=== PATIENT | male | born 1985 | race Caucasian/White ===

== ENCOUNTER 2023-09-29 19:35 | Emergency (ER) | payer BC ==
[2023-09-29] MEDS ORDERED: ONDANSETRON 4 MG/2 ML VIAL ONE (20:15)
[2023-09-29] MEDS ORDERED: FAMOTIDINE 20 MG/2 ML VIAL IV ONE (20:16)
[2023-09-29] MEDS ORDERED: NA CHLORIDE 0.9% 1,000 ML ONE ×2 (20:16→21:14)
[2023-09-29 20:45] LABS: Absolute Basophils 0.1 K/uL (0-0.5); Absolute Eosinophils 0.1 K/uL (0-0.5); Absolute Lymphocytes (CBC) 2.3 K/uL (0.7-4.9); Absolute Monocytes 0.7 K/uL (0.1-1.3); Absolute Neutrophil 7.4 K/uL (1.8-8.0); Basophils % 0.6 % (0-1.3); Eosinophils % 1.4 % (0-4.4); Hematocrit 46.1 % (39.6-49.0); Lymphocytes % 21.9 % (15.3-44.8); MCH 29.2 pg (27.0-35.0); MCHC 34.7 g/dL (32.0-36.0); MCV 84.1 fL (80-100); MPV 7.3 fL (7.6-11.3); Monocytes % 6.5 % (3.3-12.3); Neutrophils % 69.6 % (41.7-73.7); Platelets 341 thou/uL (152-406); RBC Red Blood Cell Count 5.48 M/uL (4.33-5.43); Red Cell Distribution Width 13.4 % (12.1-15.2)
[2023-09-29 20:55] LABS: Albumin 4.2 g/dL (3.4-5.0); Albumin/Globulin Ratio 1.1 (1.1-1.8); Anion Gap 7.5 mEq/L (5.0-15.0); Potassium 3.5 mEq/L (3.5-5.1); Protein, Total 8.2 g/dL (6.4-8.2)
[2023-09-29 21:29] LABS: Specific Gravity 1.018 (1.005-1.030); Sqamous Epithelial <5 /HPF (None Seen); Urine Bacteria None Seen /HPF (<20); Urine Bilirubin NEGATIVE (Negative); Urine Blood Negative (Negative); Urine Clarity Clear (Clear); Urine Color Light-Yellow (Yellow); Urine Culture Reflex Order NOT NEEDED; Urine Glucose 4+ (Over) (Negative); Urine Ketones 1+ (Negative); Urine Microscopic Reflex YN ORDER UMIC; Urine Mucus Slight /HPF (None Seen); Urine Nitrite NEGATIVE (Negative); Urine Protein NEGATIVE (Negative); Urine RBC <5 /HPF (None Seen); Urine Urobilinogen Normal (Normal); Urine WBC <5 /HPF (<5); Urine pH 5.5 (5.0-7.0)
--- NOTE | 2023-09-29 21:37 | RAD REPORT ---
EXAM DESCRIPTION: CT - Abdomen Pelvis W Contrast - 09/29/2023 9:23 pm CLINICAL HISTORY: Abdominal pain COMPARISON: none. TECHNIQUE: Computed axial tomography of the abdomen pelvis was obtained. 100 cc Isovue-300 was admin istered intravenously. Oral contrast was not requested which limits evaluation of bowel and appendix All CT scans are performed using dose optimization technique as appropriate and may include automated exposure control or mA/KV adjustment according to patient size. FINDINGS: Fatty liver The spleen, pancreas, adrenal and kidneys appear unremarkable. There is no evidence of diverticulitis. A normal appendix Small umbilical hernia IMPRESSION: No acute abnormality is displayed.
[2023-09-29 21:51] LABS: SARS-CoV-2 Antigen CONTROL BLUE LINE VIS/BG OK; SARS-CoV-2 Antigen Rapid Res Negative (Negative)
[2023-09-29] MEDS ORDERED: INSULIN REGULAR (HUMAN) 100 UNIT/ML ONE (22:33)
--- NOTE | 2023-09-29 23:33 | ER ---
Nurse's Notes [facility] Name: Fito Graff Age: 38 yrs Sex: Male : 1985 Arrival Date: 09/29/2023 Time: 19:35 Bed 7 Private MD: Diagnosis: Nausea with vomiting, unspecified Presentation: 09/28 19:49 Chief complaint: Patient states: N/V X2 DAYS. DECREASED URINATION SINCE 6A. Coronavirus jj7 screen: At this time, the client does not indicate any symptoms associated with coronavirus-19. Ebola Screen: No symptoms or risks identified at this time. Initial Sepsis Screen: Does the patient meet any 2 criteria? HR > 90 bpm. Yes Does the patient have a suspected source of infection? No. Patient's initial sepsis screen is negative. Risk Assessment: Do you want to hurt yourself or someone else? Patient reports no desire to harm self or others. Onset of symptoms was September 27, 2023. 19:49 Method Of Arrival: Ambulatory [facility] 19:49 Acuity: KANE 3 jj7 Triage Assessment: 19:52 General: Appears in no apparent distress. comfortable, Behavior is calm, cooperative, jj7 appropriate for age. Pain: Denies pain. GI: Reports cramping, nausea, vomiting. Historical: - Allergies: 19:52 ACETAMINOPHEN; jj7 19:52 Benadryl; jj7 - PMHx: 19:52 diabetes mellitus; jj7 - PSHx: 19:52 None; jj7 - Immunization history:: Adult Immunizations up to date, Client reports receiving the 2nd dose of the Covid vaccine, Flu vaccine is not up to date. - Infectious Disease History:: Denies. - Social history:: Smoking status: Patient reports the use of cigarette tobacco products, smokes one-half pack cigarettes per day, Patient/guardian denies using alcohol, street drugs, IV drugs. Screenin:54 [facility] ED Fall Risk Assessment (Adult) History of falling in the last 3 months, jj7 including since admission No falls in past 3 months (0 pts) Confusion or Disorientation No (0 pts) Intoxicated or Sedated No (0 pts) Impaired Gait No (0 pts) Mobility Assist Device Used No (0 pt) Altered Elimination No (0 pt) Score/Fall Risk Level 0 - 2 = Low Risk Oriented to surroundings, Maintained a safe environment, Educated pt \T\ family on fall prevention, incl call for assistance when getting out of bed, Assessed \T\ reinforced patient's understanding of fall precautions. Abuse screen: Denies threats or abuse. Nutritional screening: No deficits noted. Tuberculosis screening: No symptoms or risk factors identified. Assessment: 20:15 General: Appears in no apparent distress. comfortable, Behavior is calm, cooperative, jw7 appropriate for age. Pain: Denies pain. Neuro: Level of Consciousness is awake, alert, obeys commands, Oriented to person, place, time, situation, Appropriate for age. Cardiovascular: Heart tones S1 S2 present Capillary refill < 3 seconds Clubbing of nail beds is absent JVD is absent Patient's skin is warm and dry. Respiratory: Airway is patent Trachea midline Respiratory effort is even, unlabored, Respiratory pattern is regular, symmetrical. GI: Abdomen is round non-distended, Bowel sounds present X 4 quads. Abd is soft and non tender X 4 quads. Reports cramping, nausea, vomiting. : No deficits noted. No signs and/or symptoms were reported regarding the genitourinary system. EENT: No deficits noted. No signs and/or symptoms were reported regarding the EENT system. Derm: Skin is intact, is healthy with good turgor, Skin is dry, Skin is normal, Skin temperature is warm. Musculoskeletal: Circulation, motion, and sensation intact. Range of motion: intact in all extremities. 21:00 Reassessment: Patient appears in no apparent distress at this time. No changes from jw7 previously documented assessment. Patient and/or family updated on plan of care and expected duration. Pain level reassessed. Patient is alert, oriented x 3, equal unlabored respirations, skin warm/dry/pink. 22:00 Reassessment: Patient appears in no apparent distress at this time. Patient and/or jw7 family updated on plan of care and expected duration. Pain level reassessed. Patient is alert, oriented x 3, equal unlabored respirations, skin warm/dry/pink. Patient states feeling better. Patient states symptoms have improved. 23:00 Reassessment: Patient appears in no apparent distress at this time. No changes from jw7 previously documented assessment. Patient and/or family updated on plan of care and expected duration. Pain level reassessed. Patient is alert, oriented x 3, equal unlabored respirations, skin warm/dry/pink. 23:47 Reassessment: Patient appears in no apparent distress at this time. No changes from jw7 previously documented assessment. Patient and/or family updated on plan of care and expected duration. Pain level reassessed. Patient is alert, oriented x 3, equal unlabored respirations, skin warm/dry/pink. Vital Signs: 19:49 BP 115 / 78; Pulse 113; Resp 18; Temp 97.3; Pulse Ox 98% ; Weight 101.15 kg; Height 6 j7 ft. 2 in. ; 20:33 BP 129 / 86; Pulse 97; Resp 17 S; Pulse Ox 94% on R/A; jw7 21:30 BP 116 / 76; Pulse 97; Resp 16 S; Pulse Ox 95% on R/A; jw7 22:30 BP 112 / 78; Pulse 98; Resp 17 S; Pulse Ox 96% on R/A; jw7 23:30 BP 115 / 75; Pulse 95; Resp 17 S; Pulse Ox 97% on R/A; jw7 19:49 Body Mass Index 28.63 (101.15 kg, 187.96 cm) j7 ED Course: 19:37 Patient arrived in ED. jj6 19:47 Sh[facility] Evans [facility]C [facility] sb4 19:47 Sera Hernández MD is Attending Physician. sb4 19:52 Triage completed. jj7 19:52 Arm band placed on right wrist. jj7 20:20 Inserted saline lock: 20 gauge in right antecubital area, using aseptic technique. jw7 Blood collected. Flushed with 10 mL NS. 20:20 Initial lab(s) drawn, by me, sent to lab. jw7 20:31 CBC with Diff Sent. jw7 20:31 CMP Sent. jw7 20:31 Lipase Sent. jw7 20:33 Provided Education on: use of call light. jw7 20:33 Patient has correct armband on for positive identification. Bed in low position. Call jw7 light in reach. 21:25 CT Abd/Pelvis - IV Contrast Only In Process Unspecified. EDMS 21:31 SARS RAPID Sent. jw7 23:47 No provider procedures requiring assistance completed. IV discontinued, intact, jw7 bleeding controlled, No redness/swelling at site. Pressure dressing applied. Administered Medications: 20:31 Drug: NS 0.9% IV 1000 ml IV at 1 bolus Per protocol; 1000 mL bolus Route: IV; Rate: 1 jw7 bolus; Site: right antecubital; 22:45 Follow up: Response: No adverse reaction; IV Status: Completed infusion; IV Intake: jw7 1000ml 20:31 Drug: Famotidine IVP 20 mg IVP once; dilute with 10 mL 0.9% NaCl; give over 2 minutes jw7 Route: IVP; Site: right antecubital; 22:45 Follow up: Response: No adverse reaction; Marked relief of symptoms; Nausea is decreasedjw7 20:31 Drug: Ondansetron IVP 4 mg IVP once; over 2 minutes Route: IVP; Site: right antecubital;jw7 22:45 Follow up: Response: No adverse reaction; Marked relief of symptoms; Nausea is decreasedjw7 21:31 Drug: NS 0.9% IV 1000 ml IV at 1 bolus Per protocol; 1000 mL bolus Route: IV; Rate: 1 jw7 bolus; Site: right antecubital; 22:45 Follow up: Response: No adverse reaction; IV Status: Completed infusion; IV Intake: jw7 1000ml 22:35 Drug: Insulin Regular Human IVP 5 units IVP once {Co-Signature: rg5 (Raghavendra Kinsey RN).} Route: IVP; Site: right antecubital; 23:46 Follow up: Response: No adverse reaction jw7 Medication: 19:54 VIS not applicable for this client. jj7 Intake: 22:45 IV: 1000ml; Total: 1000ml. jw7 22:45 IV: 1000ml; Total: 2000ml. jw7 Outcome: 23:32 Discharge ordered by . stacy 23:47 Discharged to home ambulatory, jw7 23:47 Condition: stable 23:47 Discharge instructions given to patient, Instructed on discharge instructions, follow up and referral plans. medication usage, Demonstrated understanding of instructions, follow-up care, medications, Prescriptions given X 1, 23:47 Patient left the ED. jw7 Signatures: Dispatcher [employer] EDMS Karina Rai jj6 Grace Nye RN RN jw7 Pinky Carter RN RN jj7 Sharda Evans PA-C PAJuan J Vizcainomel RN rg5
--- NOTE | 2023-09-29 23:33 | EDPHYS ---
Physician Documentation [facility] Name: Fito Graff Age: 38 yrs Sex: Male : 1985 Arrival Date: 09/29/2023 Time: 19:35 Bed 7 Private MD: ED Physician Sera Hernández HPI: 09/28 20:06 This 38 yrs old Male presents to ER via Ambulatory with complaints of Nausea/Vomiting. sb4 20:06 The patient presents to the emergency department with nausea, vomiting. Onset: The sb4 symptoms/episode began/occurred 2 day(s) ago. Possible causes: unknown. The symptoms are aggravated by food , The symptoms are alleviated by nothing. Associated signs and symptoms: The patient has no apparent associated signs or symptoms. The patient has not experienced similar symptoms in the past. The patient has not recently seen a physician. Historical: - Allergies: 19:52 ACETAMINOPHEN; jj7 19:52 Benadryl; jj7 - PMHx: 19:52 diabetes mellitus; jj7 - PSHx: 19:52 None; jj7 - Immunization history:: Adult Immunizations up to date, Client reports receiving the 2nd dose of the Covid vaccine, Flu vaccine is not up to date. - Infectious Disease History:: Denies. - Social history:: Smoking status: Patient reports the use of cigarette tobacco products, smokes one-half pack cigarettes per day, Patient/guardian denies using alcohol, street drugs, IV drugs. ROS: 20:06 Constitutional: Negative for fever, chills, and weight loss, sb4 20:06 Abdomen/GI: Positive for nausea and vomiting, 20:06 All other systems are negative, Exam: 20:06 Constitutional: This is a well developed, well nourished patient who is awake, alert, sb4 and in no acute distress. Head/Face: Normocephalic, atraumatic. Eyes: Extra-ocular motions intact. Periorbital areas with no swelling, redness, or edema. ENT: Dry membranes moist. Respiratory: Lungs have equal breath sounds bilaterally, clear to auscultation and percussion. No rales, rhonchi or wheezes noted. No increased work of breathing, no retractions or nasal flaring. Abdomen/GI: Soft, non-tender, no distension. Skin: Warm, dry with normal turgor. Normal color with no rashes, no lesions, and no evidence of cellulitis. 20:06 Cardiovascular: Rate: tachycardic, Rhythm: regular, Vital Signs: 19:49 BP 115 / 78; Pulse 113; Resp 18; Temp 97.3; Pulse Ox 98% ; Weight 101.15 kg; Height 6 jj7 ft. 2 in. ; 20:33 BP 129 / 86; Pulse 97; Resp 17 S; Pulse Ox 94% on R/A; jw7 21:30 BP 116 / 76; Pulse 97; Resp 16 S; Pulse Ox 95% on R/A; jw7 22:30 BP 112 / 78; Pulse 98; Resp 17 S; Pulse Ox 96% on R/A; jw7 23:30 BP 115 / 75; Pulse 95; Resp 17 S; Pulse Ox 97% on R/A; jw7 19:49 Body Mass Index 28.63 (101.15 kg, 187.96 cm) [facility] MDM: 20:01 Patient medically screened. sb4 23:33 Data reviewed: vital signs, nurses notes, lab test result(s), radiologic studies, and sb4 as a result, I will discharge patient. Historians other than the Patient: Spouse/Significant Other: . Care significantly affected by the following chronic conditions: Diabetes. Counseling: I had a detailed discussion with the patient and/or guardian regarding the historical points, exam findings, and any diagnostic results supporting the discharge/admit diagnosis, lab results, radiology results, to return to the emergency department if symptoms worsen or persist or if there are any questions or concerns that arise at home. 09/28 20:05 Order name: CBC with Diff; Complete Time: 20:58 sb4 09/28 20:05 Order name: CMP; Complete Time: 20:58 sb4 09/28 20:05 Order name: Lipase; Complete Time: 20:58 sb4 09/28 20:05 Order name: Urinalysis w/ reflexes; Complete Time: 21:31 sb4 09/28 20:58 Order name: SARS RAPID; Complete Time: 21:52 sb4 09/28 22:39 Order name: Glucose, Ancillary Testing; Complete Time: 22:39 EDMS 09/28 20:05 Order name: CT Abd/Pelvis - IV Contrast Only; Complete Time: 21:37 sb4 09/28 20:05 Order name: IV Saline Lock; Complete Time: 20:31 sb4 09/28 20:05 Order name: Labs collected and sent; Complete Time: 20: sb4 09/28 21:38 Order name: PO challenge; Complete Time: 22:35 sb4 09/28 22:09 Order name: Accucheck; Complete Time: 22:33 sb4 Administered Medications: 20:31 Drug: NS 0.9% IV 1000 ml IV at 1 bolus Per protocol; 1000 mL bolus Route: IV; Rate: 1 jw7 bolus; Site: right antecubital; 22:45 Follow up: Response: No adverse reaction; IV Status: Completed infusion; IV Intake: jw7 1000ml 20:31 Drug: Famotidine IVP 20 mg IVP once; dilute with 10 mL 0.9% NaCl; give over 2 minutes jw7 Route: IVP; Site: right antecubital; 22:45 Follow up: Response: No adverse reaction; Marked relief of symptoms; Nausea is decreasedjw7 20:31 Drug: Ondansetron IVP 4 mg IVP once; over 2 minutes Route: IVP; Site: right antecubital;jw7 22:45 Follow up: Response: No adverse reaction; Marked relief of symptoms; Nausea is decreasedjw7 21:31 Drug: NS 0.9% IV 1000 ml IV at 1 bolus Per protocol; 1000 mL bolus Route: IV; Rate: 1 jw7 bolus; Site: right antecubital; 22:45 Follow up: Response: No adverse reaction; IV Status: Completed infusion; IV Intake: jw7 1000ml 22:35 Drug: Insulin Regular Human IVP 5 units IVP once {Co-Signature: rg5 (Raghavendra Kinsey7 RN).} Route: IVP; Site: right antecubital; 23:46 Follow up: Response: No adverse reaction jw7 Disposition Summary: 09/29/23 23:32 Discharge Ordered Notes: Location: Home sb4 Problem: new sb4 Symptoms: have improved sb4 Condition: Stable sb4 Diagnosis - Nausea with vomiting, unspecified sb4 Followup: sb4 - With: Emergency Department - When: As needed - Reason: Trouble breathing, Worsening of condition Discharge Instructions: - Discharge Summary Sheet sb4 - Nausea and Vomiting, Adult sb4 Forms: - Work release form sb4 - Patient Portal Instructions sb4 - Leadership Thank You Letter sb4 Prescriptions: - ondansetron 8 mg Oral Tablet,disintegrating - take 1 tablet ORAL route every 6 hours; 10 tablet; Refills: 0, Product sb4 Selection Permitted Signatures: Dispatcher [employer] EDGrace Jackman RN RN jw7 Pinky Carter RN RN jj7 Sharda Evans, PAMyra PAJairoC sb4 Raghavendra Kinsey RN rg5 Corrections: (The following items were deleted from the chart) 20:06 20:06 CBC+H.LAB.BRZ ordered. EDMS EDMS 20:06 20:06 COMPREHENSIVE METABOLIC PANEL+C.LAB.BRZ ordered. EDMS EDMS 20:06 20:06 LIPASE+C.LAB.BRZ ordered. EDMS EDMS 20:06 20:06 Urinalysis+U.LAB.BRZ ordered. EDMS EDMS 20:59 20:59 SARS-COV-2 Antigen Rapid+I.LAB.BRZ ordered. EDMS EDMS
[2023-09-30 23:59] VITALS: TEMP 97.3
[2023-10-01 00:15] VITALS: BP 115/75; O2SAT 97
== END 2023-09-29 23:47 | disposition home or self-care (01) ==
LOC: ER 19:35
DX: R11.2 Nausea with vomiting, unspecified (principal); Z11.52 Encounter for screening for COVID-19
CPT/HCPCS: 96361; 85025; 81001; 36415; 82947; 83690; 80053; 74177; 96375; 96374; 99284; 87811; Q9967; J2405; J7030 ×2

== ENCOUNTER 2023-10-30 23:57 | Emergency (ER) | payer BC ==
--- NOTE | 2023-10-31 00:18 | EDPHYS ---
Physician Documentation [facility] Name: Fito Graff Age: 38 yrs Sex: Male : 1985 Arrival Date: 10/30/2023 Time: 23:57 Bed 14 Private MD: ED Physician Stefano Adam HPI: 10/30 00:00 This 38 yrs old Male presents to ER via Unassigned with complaints of sp4 SWELLING IN JAW. 01:19 38-year-old male with a history of diabetes presents with left-sided facial swelling as sp4 reported by the patient. Historical: - Allergies: 00:09 ACETAMINOPHEN; ss 00:09 Benadryl; ss - Home Meds: 00:09 metformin [Active]; ss - PMHx: 00:09 diabetes mellitus; chronic sinusitis; ss - PSHx: 00:09 None; ss - Immunization history:: Client reports receiving the 2nd dose of the Covid vaccine. - Infectious Disease History:: Denies. - Social history:: Smoking status: Patient reports the use of cigarette tobacco products, smokes one-half pack cigarettes per day. - Family history:: not pertinent. ROS: 01:19 Constitutional: Negative for fever, chills, and weight loss, positive for left-sided sp4 facial swelling without pain 01:19 All other systems are negative, Exam: 01:19 Constitutional: This is a well developed, well nourished patient who is awake, alert, sp4 and in no acute distress. Head/Face: Normocephalic, atraumatic. Eyes: Pupils equal round and reactive to light, extra-ocular motions intact. Lids and lashes normal. Conjunctiva and sclera are not injected. Cornea within normal limits. Periorbital areas with no swelling, redness, or edema. ENT: Nares patent. No nasal discharge, no septal abnormalities noted. Tympanic membranes are normal and external auditory canals are clear. Oropharynx with no redness, swelling, or masses, exudates, or evidence of obstruction, uvula midline. Mucous membranes moist. Positive extensive plaque accumulation left upper dental structures including left upper premolars and left upper left molar teeth causing conglomerate of plaque which is quite extensive appearing , extending towards the buccal surface / there is a moderate amount of chronic periodontal disease associated with dental caries , poor dental hygiene and also significant dental decay of several molars. No sign of drainable gingival abscess. Neck: Trachea midline, no thyromegaly or masses palpated, and no cervical lymphadenopathy. Supple, full range of motion without nuchal rigidity, or vertebral point tenderness. Chest/axilla: Normal chest wall appearance and motion. Nontender with no deformity. No lesions are appreciated. Cardiovascular: Regular rate and rhythm with a normal S1 and S2. No gallops, murmurs, or rubs. Normal PMI, no JVD. No pulse deficits. Respiratory: Lungs have equal breath sounds bilaterally, clear to auscultation and percussion. No rales, rhonchi or wheezes noted. No increased work of breathing, no retractions or nasal flaring. Abdomen/GI: Soft, with normal bowel sounds. No distension or tympany. No guarding or rebound. No evidence of tenderness throughout. Back: No spinal tenderness. No costovertebral tenderness. Skin: Warm, dry with normal turgor. Normal color with no rashes, no lesions, and no evidence of cellulitis. MS/ Extremity: Pulses equal, no cyanosis. Neurovascular intact. Full, normal range of motion. Neuro: Awake and alert, GCS 15, oriented to person, place, time, and situation. Cranial nerves II-XII grossly intact. Motor strength 5/5 in all extremities. Sensory grossly intact. Psych: Awake, alert, with orientation to person, place and time. Behavior, mood, and affect are within normal limits Vital Signs: 00:00 BP 143 / 89; Pulse 90; Resp 18; Pulse Ox 98% on R/A; Pain 0/10; rg5 00:07 BP 143 / 90; Pulse 90; Resp 16; Pulse Ox 100% on R/A; Weight 98.88 kg; Height 6 ft. 2 ss in. ; Pain 0/10; 00:07 Body Mass Index 27.99 (98.88 kg, 187.96 cm) ss 00:00 Pain Scale: Adult rg5 00:07 Pain Scale: Adult ss MDM: 00:11 Patient medically screened. sp4 01:19 Differential diagnosis: dental caries, gingivitis, dental abscess, pericoronitis, sp4 aphthous ulcers, gingivostomatitis. Data reviewed: vital signs, nurses notes, old medical records, lab test result(s). Consideration of Admission/Observation Escalation of care including admission/observation considered. ED course: Patient was advised close follow-up with a dentist also advised extensive diligent oral hygiene.. 10/30 00:26 Order name: Glucose, Ancillary Testing; Complete Time: 01:30 EDMS 10/30 00:10 Order name: Accucheck Blood Glucose; Complete Time: 00:18 sp4 Administered Medications: 00:10 Drug: Rocephin (cefTRIAXone) IM 1 grams IM once Route: IM; Site: right gluteus; rg5 00:39 Follow up: Response: No adverse reaction rg5 Disposition Summary: 10/31/23 00:18 Discharge Ordered Notes: Location: Home sp4 Problem: new sp4 Symptoms: have improved sp4 Condition: Stable sp4 Diagnosis - Acute Facial swelling, acute dental associated infection, Chronic dental plaque sp4 , Chronic periodontal disease Followup: sp4 - With: Private Physician - When: 7 - 10 days - Reason: Recheck today's complaints Discharge Instructions: - Discharge Summary Sheet sp4 - Periodontal Disease sp4 Forms: - Patient Portal Instructions sp4 - Work release form [facility] Prescriptions: - Cephalexin 500 mg Oral Capsule - take 1 capsule ORAL route every 8 hours for 10 days; 30 capsule; Refills: 0, sp4 Product Selection Permitted Signatures: Oneida Siddiqui RN RN ss Stefano Adam MD MD sp4 Raghavendra Kinsey RN RN rg5
--- NOTE | 2023-10-31 00:18 | ER ---
Nurse's Notes [facility] Name: Fito Graff Age: 38 yrs Sex: Male : 1985 Arrival Date: 10/30/2023 Time: 23:57 Bed 14 Private MD: Diagnosis: Acute Facial swelling, acute dental associated infection, Chronic dental plaque , Chronic periodontal disease Presentation: 10/30 00:07 Chief complaint: Patient states: Swelling to L side of face that patient noticed an ss hour ago. HX of chronic sinusitis. Completed Z-niecy recently. Denies fever. Coronavirus screen: Client denies travel out of the [place] in the last 14 days. Ebola Screen: Patient denies exposure to infectious person. Patient denies travel to an Ebola-affected area in the 21 days before illness onset. Initial Sepsis Screen: Does the patient meet any 2 criteria? No. Patient's initial sepsis screen is negative. Does the patient have a suspected source of infection? No. Patient's initial sepsis screen is negative. Risk Assessment: Do you want to hurt yourself or someone else? Patient reports no desire to harm self or others. Onset of symptoms was October 30, 2023. 00:07 Method Of Arrival: Ambulatory ss 00:07 Acuity: KANE 3 ss Triage Assessment: 00:09 General: Appears in no apparent distress. comfortable, Behavior is calm, cooperative. ss Pain: Denies pain. Neuro: Level of Consciousness is awake, alert, obeys commands. Respiratory: Airway is patent Respiratory effort is even, unlabored, Respiratory pattern is regular, symmetrical. Derm: Skin is intact, is healthy with good turgor. Historical: - Allergies: 00:09 ACETAMINOPHEN; ss 00:09 Benadryl; ss - Home Meds: 00:09 metformin [Active]; ss - PMHx: 00:09 diabetes mellitus; chronic sinusitis; ss - PSHx: 00:09 None; ss - Immunization history:: Client reports receiving the 2nd dose of the Covid vaccine. - Infectious Disease History:: Denies. - Social history:: Smoking status: Patient reports the use of cigarette tobacco products, smokes one-half pack cigarettes per day. - Family history:: not pertinent. Screenin:00 [facility] ED Fall Risk Assessment (Adult) History of falling in the last 3 months, rg5 including since admission No falls in past 3 months (0 pts) Confusion or Disorientation No (0 pts) Intoxicated or Sedated No (0 pts) Impaired Gait No (0 pts) Mobility Assist Device Used No (0 pt) Altered Elimination No (0 pt) Score/Fall Risk Level 0 - 2 = Low Risk Oriented to surroundings, Maintained a safe environment, Hourly rounding (assess needs \T\ fall precautionary measures) done. 00:00 Abuse screen: Denies threats or abuse. Nutritional screening: No deficits noted. rg5 Tuberculosis screening: No symptoms or risk factors identified. Vital Signs: 00:00 BP 143 / 89; Pulse 90; Resp 18; Pulse Ox 98% on R/A; Pain 0/10; rg5 00:07 BP 143 / 90; Pulse 90; Resp 16; Pulse Ox 100% on R/A; Weight 98.88 kg; Height 6 ft. 2 ss in. ; Pain 0/10; 00:07 Body Mass Index 27.99 (98.88 kg, 187.96 cm) ss 00:00 Pain Scale: Adult rg5 00:07 Pain Scale: Adult ss ED Course: 10/29 23:59 Patient arrived in ED. [id number] 09 00:00 Stefano Adam MD is Attending Physician. sp4 00:00 Patient has correct armband on for positive identification. Call light in reach. rg5 Provided Education on: post er care. 00:00 No provider procedures requiring assistance completed. Patient did not have IV access rg5 during this emergency room visit. 00:09 Triage completed. ss 00:09 Arm band placed on right wrist. ss 00:17 Raghavendra Kinsey, NAEEM is Primary Nurse. rg5 Administered Medications: 00:10 Drug: Rocephin (cefTRIAXone) IM 1 grams IM once Route: IM; Site: right gluteus; rg5 00:39 Follow up: Response: No adverse reaction rg5 Medication: 00:38 VIS not applicable for this client. rg5 Outcome: 00:18 Discharge ordered by . sp4 00:20 Discharged to home ambulatory, rg5 00:20 Condition: stable rg5 00:20 Discharge instructions given to patient, Instructed on discharge instructions, follow up and referral plans. Demonstrated understanding of instructions, follow-up care, medications, Prescriptions given X 1, 00:40 Patient left the ED. rg5 Signatures: Siddiqui, Oneida, RN RN ss Karina Rai jj6 Stefano Adam MD MD sp4 Raghavendra Kinsey RN RN rg5 Corrections: (The following items were deleted from the chart) 00:37 09/05 23:55 BP 143 / 89; Pulse 90bpm; Resp 18bpm; Pulse Ox 98% RA; Pain 0/10, Adult; [id number]
[2023-10-31] MEDS ORDERED: LIDOCAINE 1% MPF 2 ML AMPULE ONE (00:25)
[2023-10-31] MEDS ORDERED: CEFTRIAXONE 1000 MG/VIAL ONE (00:25)
[2023-10-31 00:46] VITALS: BP 143/90; O2SAT 100
== END 2023-10-31 00:40 | disposition home or self-care (01) ==
LOC: ER 23:57
DX: K04.7 Periapical abscess without sinus (principal); K05.10 Chronic gingivitis, plaque induced; K05.6 Periodontal disease, unspecified; F17.210 Nicotine dependence, cigarettes, uncomplicated
CPT/HCPCS: 82947; 96372; 99284; J0696

== ENCOUNTER 2024-03-29 17:27 | Emergency (ER) | payer BC ==
--- NOTE | 2024-03-29 18:09 | RAD REPORT ---
EXAM: Chest Single View HISTORY: CHEST PAIN COMPARISON: None. FINDINGS: LUNGS/PLEURA: The lungs are clear. No pleural effusions or pneumothorax. No pulmonary edema. MEDIASTINUM: The mediastinal silhouette is within normal limits. CARDIAC: The cardiac silhouette is within normal limits. UPPER ABDOMEN: No significant abnormality. BONES: No acute abnormality. LINES/TUBES/OTHER: N/A IMPRESSION: No evidence of acute cardiopulmonary disease.
--- NOTE | 2024-03-29 19:57 | EDPHYS ---
Physician Documentation [facility] Name: Fito Graff Age: 38 yrs Sex: Male : 1985 Arrival Date: 03/29/2024 Time: 17:27 Bed DIS15 Private MD: ED Physician Roque Landeros HPI: 03/29 17:45 This 38 yrs old Male presents to ER via Ambulatory with complaints of Chest Tightness, cp Dizziness, High heart rate. 17:45 The patient presents with a history of heart racing. Context: The symptoms occur at cp rest. Onset: The symptoms/episode began/occurred this morning, after waking up. Duration: The patient or guardian reports multiple episodes, that wax and wane. 17:45 Associated signs and symptoms: Pertinent positives: chest pain that started [employer], cp Pertinent negatives: cough, fever, SOB, syncope, near-syncope. Severity of symptoms: in the emergency department the symptoms are worse. Historical: - Allergies: 17:47 ACETAMINOPHEN; hb 17:47 Benadryl; hb - PMHx: 17:47 Chronic Sinusitis; diabetes mellitus; hb - Immunization history:: Adult Immunizations up to date. - Infectious Disease History:: Denies. - Social history:: Smoking status: Reported history of juuling and/or vaping. ROS: 17:50 Constitutional: Negative for body aches, chills, fever, poor PO intake, cp 17:50 Cardiovascular: Positive for chest pain, palpitations, cp 17:50 Eyes: Negative for injury, pain, redness, and discharge, cp 17:50 ENT: Negative for drainage from ear(s), ear pain, sore throat, difficulty swallowing, difficulty handling secretions, 17:50 Respiratory: Negative for cough, shortness of breath, wheezing, 17:50 Abdomen/GI: Negative for abdominal pain, nausea, vomiting, and diarrhea, 17:50 Neuro: Negative for altered mental status, dizziness, headache, numbness, weakness, cp 17:50 All other systems are negative, Exam: 17:55 Constitutional: The patient appears in no acute distress, alert, awake, cp non-diaphoretic, non-toxic, well developed, well nourished, 17:55 Head/Face: Normocephalic, atraumatic. cp 17:55 Eyes: Periorbital structures: appear normal, Conjunctiva: normal, no exudate, no injection, Sclera: no appreciated abnormality, Lids and lashes: appear normal, bilaterally, 17:55 ENT: External ear(s): are unremarkable, Nose: is normal, Mouth: Lips: moist, Oral mucosa: moist, Posterior pharynx: Airway: no evidence of obstruction, patent, 17:55 Chest/axilla: Inspection: normal, 17:55 Cardiovascular: Rate: tachycardic, Rhythm: regular, Edema: is not appreciated, JVD: is not appreciated, 17:55 Respiratory: the patient does not display signs of respiratory distress, Respirations: normal, no use of accessory muscles, no retractions, labored breathing, is not present, Breath sounds: are clear throughout, no decreased breath sounds, no stridor, no wheezing, 17:55 Abdomen/GI: Inspection: abdomen appears normal, Palpation: abdomen is soft and non-tender, in all quadrants, 17:55 Back: pain, is absent, ROM is normal, 17:55 Neuro: Orientation: to person, place \T\ time. Mentation: is normal, Motor: moves all fours, strength is normal, Sensation: is normal, Gait: is steady, at a normal pace, without difficulty, 17:57 ECG was reviewed by the Attending Physician. Vital Signs: 17:45 BP 121 / 89; Pulse 112; Resp 14; Temp 98.9(O); Weight 96.62 kg; Height 6 ft. 2 in. ; hb Pain 4/10; 17:45 Body Mass Index 27.35 (96.62 kg, 187.96 cm) hb 17:45 Pain Scale: Adult hb MDM: 17:44 Medical Screening Exam initiated cp 18:00 Differential diagnosis: arrythmia, stress disorder, anxiety, acute coronary syndrome. 19:55 Data reviewed: vital signs, nurses notes, EKG. 19:56 ED course: VSS. EKG reviewed and negative for acute ST elevation. Patient declined to have blood drawn and continue evaluation. Will discharge to home for continued monitoring. 03/29 17:44 Order name: XRAY Chest (1 view); Complete Time: 19:08 03/29 17:44 Order name: Cardiac monitoring 03/29 17:44 Order name: EKG - Nurse/Tech 03/29 17:44 Order name: IV Saline Lock 03/29 17:44 Order name: Labs collected and sent 03/29 17:44 Order name: O2 Per Protocol cp 03/29 17:44 Order name: O2 Sat Monitoring cp EC:57 Rate is 109 beats/min. Rhythm is regular. KS interval is normal. QRS interval is cp normal. QT interval is normal. T waves are Inverted in lead aVR. Interpreted by me. Reviewed by me. Administered Medications: No medications were administered Disposition Summary: 03/29/24 19:56 Discharge Ordered Notes: Location: Home cp Problem: new cp Symptoms: are unchanged cp Condition: Stable cp Diagnosis - Chest pain, unspecified cp - Palpitations cp Followup: cp - With: Pascual John MD - When: 2 - 3 days - Reason: Recheck today's complaints Discharge Instructions: - Discharge Summary Sheet cp - Nonspecific Chest Pain, Adult cp - Palpitations cp - Aspirin and Your Heart cp Forms: - Medication Reconciliation Form cp - Antibiotic Education cp - Prescription Opioid Use cp - Patient Portal Instructions cp - Leadership Thank You Letter cp Addendum: 03/31/2024 17:31 I was immediately available for consultation during this patient's visit. I did not e c2 personally see the patient or discuss the patient with the MITCH. . Signatures: Dispatcher [employer] EDMS Dominick Darby PA PA cp Baxter, Heather, RN RN hb Corral, Edwin, MD MD ec2 Corrections: (The following items were deleted from the chart) 03/29 17:45 17:45 BASIC METABOLIC PANEL+C.LAB.BRZ ordered. EDMS EDMS 17:45 17:45 CBC+H.LAB.BRZ ordered. EDMS EDMS 17:45 17:45 HEPATIC FUNCTION+C.LAB.BRZ ordered. EDMS EDMS 17:45 17:45 MAGNESIUM+C.LAB.BRZ ordered. EDMS EDMS 17:45 17:45 PROBNP+C.LAB.BRZ ordered. EDMS EDMS 17:45 17:45 PROTIME (+INR)+COAG.LAB.BRZ ordered. EDMS EDMS 17:45 17:45 Troponin High Sensitivity+C.LAB.BRZ ordered. EDMS EDMS 17:45 17:45 Chest Single View+RAD.RAD.BRZ ordered. EDMS EDMS
--- NOTE | 2024-03-29 19:57 | ER ---
Nurse's Notes [facility] Name: Fito Graff Age: 38 yrs Sex: Male : 1985 Arrival Date: 03/29/2024 Time: 17:27 Bed DIS15 Private MD: Diagnosis: Chest pain, unspecified;Palpitations Presentation: 03/29 17:45 Chief complaint: Substernal chest pressure and palpitations since this morning. hb Coronavirus screen: At this time, the client does not indicate any symptoms associated with coronavirus-19. Ebola Screen: No symptoms or risks identified at this time. Initial Sepsis Screen: Does the patient meet any 2 criteria? No. Patient's initial sepsis screen is negative. Does the patient have a suspected source of infection? No. Patient's initial sepsis screen is negative. Risk Assessment: Do you want to hurt yourself or someone else? Patient reports no desire to harm self or others. Onset of symptoms was March 29, 2024. 17:45 Method Of Arrival: Ambulatory hb 17:45 Acuity: KANE 3 hb Triage Assessment: 17:47 General: Appears in no apparent distress. Behavior is calm, cooperative. Pain: Pain hb currently is 4 out of 10 on a pain scale. Neuro: GCS 15. Cardiovascular: Reports chest pain, palpitations, shortness of breath, Patient's skin is warm and dry. Respiratory: Respiratory effort is even, unlabored, Respiratory pattern is regular, symmetrical. Historical: - Allergies: 17:47 ACETAMINOPHEN; hb 17:47 Benadryl; hb - PMHx: 17:47 Chronic Sinusitis; diabetes mellitus; hb - Immunization history:: Adult Immunizations up to date. - Infectious Disease History:: Denies. - Social history:: Smoking status: Reported history of juuling and/or vaping. Vital Signs: 17:45 BP 121 / 89; Pulse 112; Resp 14; Temp 98.9(O); Weight 96.62 kg; Height 6 ft. 2 in. ; hb Pain 4/10; 17:45 Body Mass Index 27.35 (96.62 kg, 187.96 cm) hb 17:45 Pain Scale: Adult hb ED Course: 17:29 Patient arrived in ED. im 17:31 Dominick Darby PA is PHCP. cp 17:31 Roque Landeros MD is Attending Physician. cp 17:47 Triage completed. hb 17:47 Arm band placed on right wrist. hb 17:48 EKG done, by ED staff, reviewed by Dominick KERR. hb 18:02 XRAY Chest (1 view) In Process Unspecified. EDMS 19:56 Pascual John MD is Referral Physician. cp Administered Medications: No medications were administered Outcome: 19:56 Discharge ordered by MD. cp 19:59 Patient left the ED. vk Signatures: Dispatcher [employer] EDRI Dominick Darby PA PA cp eSjal Trivedi, RN RN Debbie Marie Vivian vk
[2024-03-29 20:14] VITALS: BP 121/89; TEMP 98.9
--- NOTE | 2024-03-30 12:12 | EKG ---
Test Date: 2024-03-29 Test Time: 17:49:02 Donor Support Technician: SHANNAN MEASUREMENT RESULTS: Intervals: Rate: 109 FL: 158 QRSD: 92 QT: 338 QTc: 455 [place]: P: 38 FL: 158 QRS: 14 T: 33 INTERPRETIVE STATEMENTS: Sinus tachycardia Cannot rule out Anterior infarct, age undetermined Abnormal ECG No previous ECG available for comparison Electronically Signed On 03-30-24 12:10:30 STITCHER HAND by Jaison Witt
== END 2024-03-29 19:59 | disposition home or self-care (01) ==
LOC: ER 17:27
DX: R07.89 Other chest pain (principal); R00.2 Palpitations
CPT/HCPCS: 71045; 93005; 99282

== ENCOUNTER 2024-06-03 20:49 | Observation (INO) | payer BC ==
[2024-06-03 21:54] LABS: Absolute Lymphocytes (CBC) 0.7 K/uL (0.7-4.9); Absolute Monocytes 0.5 K/uL (0.1-1.3); Absolute Neutrophil 14.1 K/uL (1.8-8.0); Basophils % 0.3 % (0-1.3); Eosinophils % 0.2 % (0-4.4); Hematocrit 46.6 % (39.6-49.0); Hemoglobin 16.8 g/dL (13.6-17.9); Lymphocytes % 4.3 % (15.3-44.8); MCH 29.6 pg (27.0-35.0); MCHC 36.1 g/dL (32.0-36.0); MCV 82.1 fL (80-100); MPV 7.8 fL (7.6-11.3); Monocytes % 3.6 % (3.3-12.3); Neutrophils % 91.6 % (41.7-73.7); Nucleated Red Blood Cells % 0.1 % (0-0); Platelets 292 thou/uL (152-406); RBC Red Blood Cell Count 5.68 M/uL (4.33-5.43); Red Cell Distribution Width 13.1 % (12.1-15.2)
[2024-06-03 22:16] LABS: Albumin 3.5 g/dL (3.4-5.0); Albumin/Globulin Ratio 0.9 (1.1-1.8); Anion Gap 10.5 mEq/L (5.0-15.0); Bilirubin Total 0.9 mg/dL (0.2-1.0); Globulin 3.9 g/dL (2.3-3.5); Potassium 3.5 mEq/L (3.5-5.1); Protein, Total 7.4 g/dL (6.4-8.2)
[2024-06-03] MEDS ORDERED: ONDANSETRON 4 MG/2 ML VIAL ONE (22:17)
[2024-06-03] MEDS ORDERED: NA CHLORIDE 0.9% 1,000 ML ONE (22:17)
[2024-06-03] MEDS ORDERED: MORPHINE 4 MG/ML SYR ONE (22:17)
[2024-06-03] MEDS ORDERED: KETOROLAC 30 MG/ML INJ ONE (22:17)
[2024-06-04] MEDS ORDERED: NA CHLORIDE 0.9% 1,000 ML ONE ×2 (01:08→04:55)
[2024-06-04] MEDS ORDERED: METRONIDAZOLE 500mg IVPB 500 MG/100 ML BAG IV ONE (01:26)
[2024-06-04] MEDS ORDERED: CIPROFLOXACIN 400mg IV 400 MG/200 ML BAG IV ONE (01:26)
--- NOTE | 2024-06-04 01:28 | EDPHYS ---
Physician Documentation [facility] Name: Fito Graff Age: 38 yrs Sex: Male : 1985 Arrival Date: 06/03/2024 Time: 20:49 Bed 15 Private MD: ED Physician Giovana Ron HPI: 06/03 22:30 This 38 yrs old Male presents to ER via Ambulatory with complaints of Nausea/Vomiting. sp3 22:30 38-year-old male with history of diabetes type 2 being treated with metformin presents sp3 to the ED with nausea, vomiting and diarrhea coupled with abdominal cramping for 3 to 4 days. Patient states that his urine output is low and he has not been able to hold anything down. Subjective fever noted. He denies any past surgical history, known sick contacts, travel history or any other signs or symptoms on ROS at this time. He has not ever been in DKA or any complications secondary to his diabetes. . Historical: - Allergies: 21:26 ACETAMINOPHEN; lg3 21:26 Benadryl; lg3 - PMHx: 21:26 Chronic Sinusitis; diabetes mellitus; lg3 - PSHx: 21:26 None; lg3 - Immunization history:: Adult Immunizations up to date. - Infectious Disease History:: Denies. - Social history:: Smoking status: Reported history of juuling and/or vaping. Patient/guardian denies using alcohol, street drugs. ROS: 22:31 Constitutional: Negative for fever, chills, and weight loss, Eyes: Negative for injury, sp3 pain, redness, and discharge, ENT: Negative for injury, pain, and discharge, Neck: Negative for injury, pain, and swelling, Cardiovascular: Negative for chest pain, palpitations, and edema, Respiratory: Negative for shortness of breath, cough, wheezing, and pleuritic chest pain, Back: Negative for injury and pain, MS/Extremity: Negative for injury and deformity, Skin: Negative for injury, rash, and discoloration, Neuro: Negative for headache, weakness, numbness, tingling, and seizure, Psych: Negative for depression, anxiety, suicide ideation, homicidal ideation, and hallucinations, Allergy/Immunology: Negative for hives, rash, and allergies, Endocrine: Negative for neck swelling, polydipsia, polyuria, polyphagia, and marked weight changes, 22:31 All other systems are negative, Exam: 22:32 Constitutional: This is a well developed, well nourished patient who is awake, alert, sp3 and in no acute distress. Head/Face: Normocephalic, atraumatic. Eyes: Pupils equal round and reactive to light, extra-ocular motions intact. Lids and lashes normal. Conjunctiva and sclera are non-icteric and not injected. Cornea within normal limits. Periorbital areas with no swelling, redness, or edema. Neck: Trachea midline, no thyromegaly or masses palpated, and no cervical lymphadenopathy. Supple, full range of motion without nuchal rigidity, or vertebral point tenderness. No Meningismus. Chest/axilla: Normal chest wall appearance and motion. Nontender with no deformity. No lesions are appreciated. Respiratory: Lungs have equal breath sounds bilaterally, clear to auscultation and percussion. No rales, rhonchi or wheezes noted. No increased work of breathing, no retractions or nasal flaring. Back: No spinal tenderness. No costovertebral tenderness. Full range of motion. Skin: Warm, dry with normal turgor. Normal color with no rashes, no lesions, and no evidence of cellulitis. MS/ Extremity: Pulses equal, no cyanosis. Neurovascular intact. Full, normal range of motion. Neuro: Awake and alert, GCS 15, oriented to person, place, time, and situation. Cranial nerves II-XII grossly intact. Motor strength 5/5 in all extremities. Sensory grossly intact. Cerebellar exam normal. Normal gait. Psych: Awake, alert, with orientation to person, place and time. Behavior, mood, and affect are within normal limits. 22:32 Cardiovascular: 22:32 Abdomen/GI: Patient with dry mucous membranes and tachycardia initially in the 130s. Abdominal cramping diffusely without peritoneal signs, rebound or guarding or point tenderness. Increased bowel sounds noted. Patient nauseated but no vomiting in the ED., Vital Signs: 21:24 BP 140 / 81; Pulse 133; Resp 19 S; Temp 100(O); Pulse Ox 97% on R/A; Weight 96.62 kg lg3 (R); Height 6 ft. 2 in. (R); 22:27 BP 123 / 83; Pulse 116; Resp 20; Pulse Ox 96% ; al5 23:33 BP 121 / 69; Pulse 99; Resp 18; Pulse Ox 97% ; al5 06/04 01:20 BP 126 / 96; Pulse 98; Resp 18; Pulse Ox 100% ; dd2 02:15 BP 111 / 76; Pulse 87; Resp 18; Pulse Ox 98% on R/A; oe 06/03 21:24 Body Mass Index 27.35 (96.62 kg, 187.96 cm) lg3 MDM: 06/03 21:30 Medical Screening Exam initiated sp3 22:32 Data reviewed: vital signs, nurses notes, lab test result(s), radiologic studies. ED sp3 course: 38-year-old male with vomiting, diarrhea and dehydration coupled with hyperglycemia with blood sugar over 400 in the ED. Differential diagnosis includes DKA, gastroenteritis, viral illness, foodborne illness, other surgical pathology including biliary, pancreatitis, appendicitis, UTI/pyelonephritis spectrum, kidney stone, among others. Workup include CT scan of the abdomen pelvis with IV contrast, general labs, UA and aggressive IV hydration and pain and nausea control. Disposition pending workup and patient course. Ketorolac for low-grade fever also given.. 06/03 21:31 Order name: CBC with Diff; Complete Time: 22:18 sp3 06/03 21:31 Order name: CMP; Complete Time: 22:31 sp3 06/03 21:31 Order name: Lipase; Complete Time: 22:31 sp3 06/03 21:31 Order name: Urinalysis w/ reflexes; Complete Time: 02:32 sp3 06/03 21:31 Order name: Lactate w/ 2H reflex if indic.; Complete Time: 22:18 sp3 06/03 21:47 Order name: Glucose, Ancillary Testing; Complete Time: 22:18 EDMS 06/04 02:35 Order name: Urine Culture EDMS 06/04 02:53 Order name: Glucose, Ancillary Testing; Complete Time: 03:26 EDMS 06/04 03:14 Order name: Lactate w/ 2H reflex if indic. EDMS 06/04 03:14 Order name: Magnesium EDMS 06/04 03:14 Order name: Phosphorus EDMS 06/04 03:14 Order name: Urinalysis w/ reflexes EDMS 06/04 03:14 Order name: CBC with Automated Diff EDMS 06/04 03:14 Order name: CBC with Automated Diff EDMS 06/04 03:14 Order name: Comprehensive Metabolic Panel EDMS 06/04 03:14 Order name: Comprehensive Metabolic Panel EDMS 06/04 03:23 Order name: Hemoglobin A1c EDMN 06/04 03:32 Order name: C.difficile GDH Ag EDMS 06/04 03:32 Order name: Ova and Parasites EDMS 06/04 03:32 Order name: Stool Culture EDMS 06/04 04:59 Order name: Glucose, Ancillary Testing EDMS 06/04 06:24 Order name: Basic Metabolic Panel EDMS 06/04 07:32 Order name: Glucose, Ancillary Testing EDMS 06/04 12:34 Order name: Glucose, Ancillary Testing EDMS 06/03 21:31 Order name: CT Abd/Pelvis - IV Contrast Only; Complete Time: 03:26 sp3 06/03 21:31 Order name: IV Saline Lock; Complete Time: 21:41 sp3 06/03 21:31 Order name: Labs collected and sent; Complete Time: 21:41 sp3 Administered Medications: 22:27 Drug: Ondansetron IVP 4 mg IVP once; over 2 minutes Route: IVP; Site: left antecubital; al5 23:32 Follow up: Response: No adverse reaction; Nausea is decreased al5 22:27 Drug: morphine IVP or IV 4 mg IVP once over 4 mins Route: IVP; Infused Over: 4 mins; al5 Site: left antecubital; 23:33 Follow up: Response: No adverse reaction; Pain is decreased al5 22:27 Drug: NS 0.9% IV 1000 ml IV at 1 bolus Per protocol; to be given as a bolus over 60 al5 minutes Route: IV; Rate: 1 bolus; Site: left antecubital; 06/04 05:42 Follow up: Response: No adverse reaction; IV Status: Completed infusion; IV Intake: al5 1000ml 06/03 22:27 Drug: Ketorolac IVP 30 mg IVP once Route: IVP; Site: left antecubital; al5 23:32 Follow up: Response: No adverse reaction; Pain is decreased al5 06/04 01:34 Drug: metroNIDAZOLE IVPB 500 mg 100 ml IVPB at 200 ml/hr once over 30 mins Volume: 100 vc1 ml; Route: IVPB; Rate: 200 ml/hr; Infused Over: 30 mins; Site: left antecubital; 02:50 Follow up: Response: No adverse reaction; IV Status: Completed infusion; IV Intake: dd2 100ml 01:34 Drug: NS 0.9% IV 1000 ml IV at 1000 ml once; to be given as a bolus over 60 minutes vc1 Route: IV; Rate: 1000 ml; Site: left antecubital; 03:31 Follow up: Response: No adverse reaction; IV Status: Completed infusion; IV Intake: dd2 1000ml 02:00 Drug: morphine IVP or IV 4 mg IVP once over 4 mins Route: IVP; Infused Over: 4 mins; al5 Site: left antecubital; 03:31 Follow up: Response: No adverse reaction; Pain is decreased dd2 02:50 Drug: Ciprofloxacin IVPB 400 mg 200 ml IVPB once over 60 mins Volume: 200 ml; Route: dd2 IVPB; Infused Over: 60 mins; Site: left antecubital; 05:43 Follow up: Response: No adverse reaction; IV Status: Completed infusion; IV Intake: al5 200ml Point of Care Testing: Blood Glucose: 06/03 21:35 Blood Glucose: 415 mg/dL; al5 Ranges: Critical Glucose Levels:Adult <50 mg/dl or >400 mg/dl <40 mg/dl or >180 mg/dl Disposition Summary: 06/04/24 01:27 Hospitalization Ordered Notes: Hospitalization Status: Observation sp3 Provider: Prince marcos Juarez Condition: Stable sp3 Problem: new sp3 Symptoms: have worsened sp3 Bed/Room Type: Standard sp3 Location: Telemetry/MedSurg (observation)(06/04/24 14:58) Room Assignment: 206(06/04/24 14:58) eb Diagnosis - Gastroenteritis, dehydration, hyperglycemia sp3 Forms: - Medication Reconciliation Form sp3 - SBAR form sp3 - Leadership Thank You Letter sp3 Signatures: Dispatcher [employer] Melany Strong Lacie, RN RN lg3 Giovana Ron MD MD sp3 Tatyana Rodriguez RN RN vc1 Marta Zheng1 Kathryn Frey RN RN al5 REGINA CORBIN RN RN dd2 Corrections: (The following items were deleted from the chart) 21:31 21:31 CBC+H.LAB.BRZ ordered. EDMS EDMS 21: 21:31 COMPREHENSIVE METABOLIC PANEL+C.LAB.BRZ ordered. EDMS EDMS 21: 21:31 LIPASE+C.LAB.BRZ ordered. EDMS EDMS 21: 21:31 Urinalysis+U.LAB.BRZ ordered. EDMS EDMS 21: 21:31 LACTATE+C.LAB.BRZ ordered. EDMS EDMS 21: 21:31 Abdomen Pelvis W Con+CT.RAD.BRZ ordered. EDMS EDMS 06/04 02:15 01:27 Telemetry/MedSurg (observation) sp3 rv1 02:15 01:27 sp3 rv1 14:58 02:15 BR ER HOLD rv1 eb 14:58 02:15 ERHOLD- rv1 eb
--- NOTE | 2024-06-04 01:28 | ER ---
Nurse's Notes [facility] Name: Fito Graff Age: 38 yrs Sex: Male : 1985 Arrival Date: 06/03/2024 Time: 20:49 Bed 15 Private MD: Diagnosis: Gastroenteritis, dehydration, hyperglycemia Presentation: 06/03 21:24 Chief complaint: Patient states: nausea, vomiting, fatigue, muscle pain beginning this lg3 morning. Coronavirus screen: At this time, unable to obtain information related to travel outside the [place] Ebola Screen: No symptoms or risks identified at this time. Initial Sepsis Screen: Does the patient meet any 2 criteria? No. Patient's initial sepsis screen is negative. Does the patient have a suspected source of infection? No. Patient's initial sepsis screen is negative. Risk Assessment: Do you want to hurt yourself or someone else? Patient reports no desire to harm self or others. Onset of symptoms was June 03, 2024. 21:24 Method Of Arrival: Ambulatory lg3 21:24 Acuity: KANE 3 lg3 Triage Assessment: 21:26 General: Appears in no apparent distress. uncomfortable, Behavior is calm, cooperative. lg3 Pain: Complains of pain in abdomen. EENT: No deficits noted. No signs and/or symptoms were reported regarding the EENT system. Neuro: No deficits noted. Barkley Agitation-Sedation Scale (RASS): 0 - Alert and Calm Level of Consciousness is awake, alert, obeys commands, Oriented to person, place, time, situation, Reports headache weakness. Cardiovascular: No deficits noted. Denies chest pain, shortness of breath, Capillary refill < 3 seconds Clubbing of nail beds is absent JVD is absent Patient's skin is warm and dry. Respiratory: No deficits noted. Airway is patent Respiratory effort is even, unlabored, Respiratory pattern is regular, symmetrical, Breath sounds are clear bilaterally. GI: Abdomen is round non-distended, Reports lower abdominal pain, upper abdominal pain, diarrhea, intolerance of fluids, intolerance of food, nausea, vomiting. : No signs and/or symptoms were reported regarding the genitourinary system. Derm: No deficits noted. No signs and/or symptoms reported regarding the dermatologic system. Skin is intact, is healthy with good turgor, Skin is dry, Skin is normal, Skin temperature is warm. Musculoskeletal: No deficits noted. Circulation, motion, and sensation intact. Range of motion: intact in all extremities. Historical: - Allergies: 21:26 ACETAMINOPHEN; lg3 21:26 Benadryl; lg3 - PMHx: 21:26 Chronic Sinusitis; diabetes mellitus; lg3 - PSHx: 21:26 None; lg3 - Immunization history:: Adult Immunizations up to date. - Infectious Disease History:: Denies. - Social history:: Smoking status: Reported history of juuling and/or vaping. Patient/guardian denies using alcohol, street drugs. Screenin:28 [facility] ED Fall Risk Assessment (Adult) History of falling in the last 3 months, al5 including since admission Yes- single mechanical fall (1 pt) Confusion or Disorientation No (0 pts) Intoxicated or Sedated No (0 pts) Impaired Gait No (0 pts) Mobility Assist Device Used No (0 pt) Altered Elimination No (0 pt) Score/Fall Risk Level 0 - 2 = Low Risk Oriented to surroundings, Maintained a safe environment, Hourly rounding (assess needs \T\ fall precautionary measures) done. Abuse screen: Denies threats or abuse. Denies injuries from another. Nutritional screening: No deficits noted. Tuberculosis screening: No symptoms or risk factors identified. Assessment: 22:28 General: Appears in no apparent distress. uncomfortable, Behavior is calm, cooperative. al5 Pain: Complains of pain in abdomen. Neuro: Level of Consciousness is awake, alert, obeys commands, Oriented to person, place, time, situation. Cardiovascular: Capillary refill < 3 seconds Patient's skin is warm and dry. Respiratory: Airway is patent Respiratory effort is even, unlabored, Respiratory pattern is regular, symmetrical. GI: Abdomen is flat, non-distended, Reports lower abdominal pain, upper abdominal pain, nausea, vomiting. : No signs and/or symptoms were reported regarding the genitourinary system. EENT: No signs and/or symptoms were reported regarding the EENT system. Derm: Skin is intact, is healthy with good turgor, Skin is pink, warm \T\ dry. normal. Musculoskeletal: No signs and/or symptoms reported regarding the musculoskeletal system. 23:33 Reassessment: Patient appears in no apparent distress at this time. Patient and/or al5 family updated on plan of care and expected duration. Pain level reassessed. Patient is alert, oriented x 3, equal unlabored respirations, skin warm/dry/pink. pain and nausea decreased. Vital Signs: 21:24 BP 140 / 81; Pulse 133; Resp 19 S; Temp 100(O); Pulse Ox 97% on R/A; Weight 96.62 kg lg3 (R); Height 6 ft. 2 in. (R); 22:27 BP 123 / 83; Pulse 116; Resp 20; Pulse Ox 96% ; al5 23:33 BP 121 / 69; Pulse 99; Resp 18; Pulse Ox 97% ; al5 06/04 01:20 BP 126 / 96; Pulse 98; Resp 18; Pulse Ox 100% ; dd2 02:15 BP 111 / 76; Pulse 87; Resp 18; Pulse Ox 98% on R/A; oe 06/03 21:24 Body Mass Index 27.35 (96.62 kg, 187.96 cm) lg3 ED Course: 06/03 20:50 Patient arrived in ED. jj6 20:52 Giovana Ron MD is Attending Physician. sp3 21:26 Triage completed. lg3 21:26 Arm band placed on left wrist. lg3 21:35 Kathryn Frey, NAEME is Primary Nurse. al5 21:41 CBC with Diff Sent. af3 21:41 CMP Sent. af3 21:41 Lactate w/ 2H reflex if indic. Sent. af3 21:41 Lipase Sent. af3 21:41 Inserted saline lock: 20 gauge in left antecubital area, using aseptic technique. Blood af3 collected. Flushed with 10 mL NS. 22:29 Patient has correct armband on for positive identification. Bed in low position. Call al5 light in reach. Side rails up X2. Provided Education on: plan of care. 22:29 No provider procedures requiring assistance completed. al5 22:39 CT Abd/Pelvis - IV Contrast Only In Process Unspecified. EDMS 06/04 01:27 Prince Juarez MD is Hospitalizing Provider. sp3 02:00 Patient admitted, IV remains in place. al5 07:21 Primary Nurse role handed off by Kathryn Frey, NAEEM eb Administered Medications: 06/03 22:27 Drug: Ondansetron IVP 4 mg IVP once; over 2 minutes Route: IVP; Site: left antecubital; al5 23:32 Follow up: Response: No adverse reaction; Nausea is decreased al5 22:27 Drug: morphine IVP or IV 4 mg IVP once over 4 mins Route: IVP; Infused Over: 4 mins; al5 Site: left antecubital; 23:33 Follow up: Response: No adverse reaction; Pain is decreased al5 22:27 Drug: NS 0.9% IV 1000 ml IV at 1 bolus Per protocol; to be given as a bolus over 60 al5 minutes Route: IV; Rate: 1 bolus; Site: left antecubital; 06/04 05:42 Follow up: Response: No adverse reaction; IV Status: Completed infusion; IV Intake: al5 1000ml 06/03 22:27 Drug: Ketorolac IVP 30 mg IVP once Route: IVP; Site: left antecubital; al5 23:32 Follow up: Response: No adverse reaction; Pain is decreased al5 06/04 01:34 Drug: metroNIDAZOLE IVPB 500 mg 100 ml IVPB at 200 ml/hr once over 30 mins Volume: 100 vc1 ml; Route: IVPB; Rate: 200 ml/hr; Infused Over: 30 mins; Site: left antecubital; 02:50 Follow up: Response: No adverse reaction; IV Status: Completed infusion; IV Intake: dd2 100ml 01:34 Drug: NS 0.9% IV 1000 ml IV at 1000 ml once; to be given as a bolus over 60 minutes vc1 Route: IV; Rate: 1000 ml; Site: left antecubital; 03:31 Follow up: Response: No adverse reaction; IV Status: Completed infusion; IV Intake: dd2 1000ml 02:00 Drug: morphine IVP or IV 4 mg IVP once over 4 mins Route: IVP; Infused Over: 4 mins; al5 Site: left antecubital; 03:31 Follow up: Response: No adverse reaction; Pain is decreased dd2 02:50 Drug: Ciprofloxacin IVPB 400 mg 200 ml IVPB once over 60 mins Volume: 200 ml; Route: dd2 IVPB; Infused Over: 60 mins; Site: left antecubital; 05:43 Follow up: Response: No adverse reaction; IV Status: Completed infusion; IV Intake: al5 200ml Medication: 06/03 22:29 VIS not applicable for this client. al5 Point of Care Testing: Blood Glucose: 21:35 Blood Glucose: 415 mg/dL; al5 Ranges: Intake: 06/04 02:50 IV: 100ml; Total: 100ml. dd2 03:31 IV: 1000ml; Total: 1100ml. dd2 05:42 IV: 1000ml; Total: 2100ml. al5 05:43 IV: 200ml; Total: 2300ml. al5 Outcome: 01:27 Decision to Hospitalize by Provider. sp3 02:00 Admitted to ER Hold. Please see [facility] for further documentation. al5 02:00 Condition: stable 02:00 Instructed on the need for admit, 15:31 Patient left the ED. kc6 Signatures: Dispatcher [employer] EDMS Darryl Chester Elizabeth eb Able, Lacie, RN RN lg3 Giovana Ron MD MD sp3 Karina Rai6 Tatyana Rodriguez RN RN 1 Sophia Morrison RN RN kc6 Kathryn Frey RN RN al5 Sunita Mazariegos DIANA, RN RN dd2
[2024-06-04] MEDS ORDERED: MORPHINE 4 MG/ML SYR ONE (01:58)
[2024-06-04 02:30] LABS: Urine Bacteria 20-50 /HPF (<20); Urine Bilirubin NEGATIVE (Negative); Urine Blood Negative (Negative); Urine Clarity Clear (Clear); Urine Color Light-Yellow (Yellow); Urine Culture Reflex Order REFLEXED; Urine Glucose 4+ (Over) (Negative); Urine Ketones 2+ (Negative); Urine Microscopic Reflex YN ORDER UMIC; Urine Mucus Slight /HPF (None Seen); Urine Nitrite NEGATIVE (Negative); Urine Protein TRACE (Negative); Urine RBC None Seen /HPF (None Seen); Urine Urobilinogen Normal (Normal); Urine WBC 20-50 /HPF (<5); Urine pH 5.5 (5.0-7.0)
[2024-06-04 02:32] LABS: Specific Gravity > 1.030 (1.005-1.030)
[2024-06-04] MEDS ORDERED: D10W 125 ML IV PRN ×2 (03:10→03:29)
[2024-06-04] MEDS ORDERED: GLUCAGON 1 MG/VIAL IM PRN ×2 (03:10→03:29)
[2024-06-04] MEDS ORDERED: ACETAMINOPHEN 500 MG TAB PO PRN (03:10)
--- NOTE | 2024-06-04 03:12 | RAD REPORT ---
EXAMINATION: CT Abdomen Pelvis W Contrast CLINICAL INDICATION: Male, 38 years old. ABD PAIN TECHNIQUE: CT abdomen and pelvis was performed, after the administration of IV contrast, [facility]. Axial, sagittal and coronal reconstructions were obtained. One or more of the following dose reduction techniques were used: Automated exposure control, adjustment of the mA and k V according to patient size, and iterative reconstruction. Unless otherwise specified, incidental findings do not require dedicated imaging follow-up. COMPARISON: 09/29/2023 FINDINGS: LOWER CHEST: The visualized lung bases are clear. LIVER: Mild fatty liver is present. No focal lesion or biliary dilataion is seen. BILIARY SYSTEM: No suspicious abnormalities. SPLEEN: Normal size. No focal lesion. PANCREAS: No mass, ductal dilation, or des-pancreatic fluid. ADRENALS: Normal; no mass. KIDNEYS: Normal size and contour. No hydronephrosis. URINARY BLADDER: Unremarkable. GASTROINTESTINAL TRACT: Nonspecific fluid opacification of nondistended mid to distal segmental small bowel and the ascending colon. No evidence of free air, significant intra-abdominal free fluid, bowel obstruction or abscess. APPENDIX: Appendix not visualized, but no inflammatory changes in region of appendix. LYMPH NODES: No lymphadenopathy. MUSCULOSKELETAL: No acute or suspicious osseous abnormality. ADDITIONAL FINDINGS: None. IMPRESSION: Nonspecific fluid opacification of nondistended mid to distal small bowel and the ascending colon, ma y relate to enteritis or diarrheal state. No other acute or concerning abnormalities seen in the abdomen or pelvis.
--- NOTE | 2024-06-04 03:20 | P.HP ---
Certification for Inpatient Patient admitted to: Observation With expected LOS: <2 Midnights Practitioner: I am a practitioner with admitting privileges, knowledge of patient current condition, hospital course, and medical plan of care. Services: Services provided to patient in accordance with Admission requirements found in Title 42 Section 412.3 of the Code of Federal Regulations Patient History Date of Service: 06/04/24 Reason for admission: Intractable nausea and vomiting History of Present Illness: Patient is a 38-year-old male with a past medical history of type 2 diabetes mellitus complicated by diabetic neuropathy. He presented to the ER complaining of sudden onset of gastrointestinal symptoms which included nausea, vomiting, abdominal pain and diarrhea. Workup in the ER revealed severe hyperglycemia. Did not meet criteria for DKA or HHS. During my evaluation, he was hemodynamically stable. Additional workup included urine analysis which is slightly abnormal. Patient had a CAT scan of the abdomen and pelvis. Unfortunately, due to some technical challenges, the images could not be sent to the radiologist. This will probably resolve in the morning and will be able to get a final read. Physical Examination - Physical Exam General: Acute distress HEENT: Atraumatic, Normocephalic Respiratory: Clear to auscultation bilaterally, Normal air movement Cardiovascular: No edema, Normal pulses, Regular rate/rhythm, Normal S1 S2 Gastrointestinal: Soft and benign, Non-distended, Tenderness Neurological: Normal speech - Studies Laboratory Data (last 24 hrs) 06/03/24 06/03/24 21:42 21:42 WBC 15.30 H Hgb 16.8 Hct 46.6 Plt Count 292 Sodium 129 L Potassium 3.5 BUN 13 Creatinine 0.99 Glucose 410 H* Total Bilirubin 0.9 AST 12 L ALT 27 Alkaline Phosphatase 133 H Lipase 26 Assessment and Plan - Problems (Diagnosis) (1) Gastroenteritis Current Visit: Yes Status: Acute (2) Hyperglycemia due to type 2 diabetes mellitus Current Visit: Yes Status: Acute (3) Diabetic neuropathy Current Visit: Yes Status: Acute - Plan Assessment 38-year-old male who is being admitted for acute gastroenteritis. He is severely hyperglycemic blood glucose reaching into need 400s. Additional workup included CT abdomen pelvis, which is yet to be read. Acute gastroenteritis Type 2 diabetes mellitus with hyperglycemia Diabetic neuropathy Plan: Will admit under observation with telemetry Volume repletion. Start full liquid diet for now and advance as tolerated Follow-up with radiology for formal CT reading Continue antiemetics and symptomatic control Patient is full code - Advance Directives Does patient have a Living Will: No Does patient have a Durable POA for Healthcare: No
[2024-06-04] MEDS: INSULIN REGULAR (HUMAN) 100 UNIT/ML SQ SCH (03:29)
[2024-06-04] MEDS: NA CHLORIDE 0.9% 1,000 ML IV SCH (04:00)
[2024-06-04 04:36] VITALS: BMI 27.3
[2024-06-04 04:43] VITALS: O2SAT 98
[2024-06-04] MEDS ORDERED: INSULIN REGULAR (HUMAN) 100 UNIT/ML ONE ×3 (04:53→13:03)
[2024-06-04 05:14] LABS: Magnesium 1.8 mg/dL (1.6-2.4); Phosphorus 3.3 mg/dL (2.5-4.9)
[2024-06-04 07:16] LABS: Specific Gravity > 1.030 (1.005-1.030); Urine Bacteria None Seen /HPF (<20); Urine Bilirubin NEGATIVE (Negative); Urine Blood Trace (Negative); Urine Clarity Extremely Turbid (Clear); Urine Color Yellow (Yellow); Urine Culture Reflex Order REFLEXED; Urine Glucose 4+ (Over) (Negative); Urine Ketones 2+ (Negative); Urine Microscopic Reflex YN ORDER UMIC; Urine Mucus Slight /HPF (None Seen); Urine Nitrite NEGATIVE (Negative); Urine Protein TRACE (Negative); Urine RBC >50 /HPF (None Seen); Urine Urobilinogen Normal (Normal); Urine WBC >50 /HPF (<5); Urine Yeast (Budding) Occasional /HPF (None Seen); Urine pH 5.5 (5.0-7.0)
[2024-06-04] MEDS ORDERED: ENOXAPARIN 40 MG/0.4 ML SQ ONE (08:20)
[2024-06-04] MEDS: ENOXAPARIN 40 MG/0.4 ML SQ SCH (08:24)
--- NOTE | 2024-06-04 16:11 | P.PN ---
Date of Service: 06/04/24 Follow-up: Seen resting in the emergency department. He states he is unable to check his blood sugar at work. He works in a [employer]. We discussed improving the control of his blood sugars. Lab work revealing leukocytosis with imaging suggestive of intra-abdominal infection. Will start Zosyn. Discussed with nursing staff. In addition he states he is dizzy when he stands up. Stool studies pending
[2024-06-04] MEDS: PIPER TAZO 3.375 GM in NA CHLORIDE 0.9% 100 ML IV SCH (17:07)
[2024-06-04 18:19] LABS: C.diff Antigen/Toxin Ag neg : Tox neg (NEG : NEG); CDIFF INTERNAL NEG CONTROL White Background (WHITE BKGD); STOOL CONSISTENCY Liquid/Semi-Solid
[2024-06-04] MEDS: ONDANSETRON 4 MG/2 ML VIAL IV PRN (19:53)
[2024-06-05] MEDS: LOPERAMIDE HCL 2 MG CAPSULE PO STA (05:35)
[2024-06-05 06:46] LABS: Absolute Eosinophils 0.2 K/uL (0-0.5); Absolute Lymphocytes (CBC) 1.2 K/uL (0.7-4.9); Absolute Monocytes 0.6 K/uL (0.1-1.3); Absolute Neutrophil 4.7 K/uL (1.8-8.0); Basophils % 0.4 % (0-1.3); Eosinophils % 2.5 % (0-4.4); Hematocrit 40.3 % (39.6-49.0); Hemoglobin 14.4 g/dL (13.6-17.9); Lymphocytes % 18.2 % (15.3-44.8); MCH 29.6 pg (27.0-35.0); MCHC 35.6 g/dL (32.0-36.0); MCV 83.1 fL (80-100); MPV 7.9 fL (7.6-11.3); Monocytes % 8.8 % (3.3-12.3); Neutrophils % 70.1 % (41.7-73.7); Nucleated Red Blood Cells % 0.1 % (0-0); Platelets 235 thou/uL (152-406); RBC Red Blood Cell Count 4.85 M/uL (4.33-5.43)
[2024-06-05 07:07] LABS: Albumin 2.7 g/dL (3.4-5.0); Albumin/Globulin Ratio 0.9 (1.1-1.8); Anion Gap 9.6 mEq/L (5.0-15.0); Bilirubin Total 0.5 mg/dL (0.2-1.0); Globulin 3.1 g/dL (2.3-3.5); Potassium 3.6 mEq/L (3.5-5.1); Protein, Total 5.8 g/dL (6.4-8.2)
[2024-06-05 08:21] VITALS: BP 122/76; TEMP 98.3
--- NOTE | 2024-06-05 15:25 | P.DS ---
Admission Date: 06/04/24 Discharge Date: 06/05/24 Disposition: ROUTINE DISCHARGE Discharge Condition: FAIR Reason for Admission: Intractable nausea and vomiting Brief History of Present Illness: Patient 38 years of age admitted with acute onset of nausea vomiting Hospital Course: Patient is 38 years of age developed acute onset of nausea and vomiting in addition to some diarrhea is admitted to the hospital treated with IV fluids is currently better diarrhea has resolved no nausea vomiting tolerated his diet nonspecific enteritis on CT scan at the time of discharge patient alert oriented responsive cooperative vital signs all stable abdomen very soft no tenderness rebound or guarding positive bowel sounds quite possible that he has a urinary tract infection urine urinary esterases increase significantly patient is a diabetic I discharged him on on Cipro for few days as urinary tract infection could have triggered this episode vital signs were all stable at time of discharge Vital Signs/Physical Exam: Temp Pulse Resp BP Pulse Ox 98.3 F 79 18 122/76 97 06/05/24 08:00 06/05/24 08:00 06/05/24 08:00 06/05/24 08:00 06/05/24 08:00 Laboratory Data at Discharge: WBC 6.70 thou/uL (4.3-10.9) 06/05/24 06:14 Hgb 14.4 g/dL (13.6-17.9) 06/05/24 06:14 Hct 40.3 % (39.6-49.0) 06/05/24 06:14 Plt Count 235 thou/uL (152-406) 06/05/24 06:14 Sodium 136 mEq/L (136-145) 06/05/24 06:14 Potassium 3.6 mEq/L (3.5-5.1) 06/05/24 06:14 BUN 6 mg/dL (7-18) L 06/05/24 06:14 Creatinine 0.72 mg/dL (0.70-1.30) 06/05/24 06:14 Glucose 292 mg/dL (74-106) H 06/05/24 06:14 Phosphorus 3.3 mg/dL (2.5-4.9) 06/04/24 04:24 Magnesium 1.8 mg/dL (1.6-2.4) 06/04/24 04:24 Total Bilirubin 0.5 mg/dL (0.2-1.0) 06/05/24 06:14 AST 20 U/L (15-37) 06/05/24 06:14 ALT 31 U/L (16-61) 06/05/24 06:14 Alkaline Phosphatase 97 U/L (45-117) 06/05/24 06:14 Lipase 26 U/L (13-75) 06/03/24 21:42 Home Medications: Diclofenac Sodium 50 mg PO BID 06/04/24 Gabapentin 300 mg PO BID 06/04/24 Metformin HCl 1,000 mg PO BID 06/04/24 Ciprofloxacin HCl [Cipro] 500 mg PO BID 5 Days #10 tab 06/05/24 New Medications: Ciprofloxacin HCl [Cipro] 500 mg PO BID 5 Days #10 tab Followup: Jean-Pierre Rosado MD [Primary Care Provider] -
== END 2024-06-05 14:20 | disposition home or self-care (01) ==
LOC: ER 20:49 → ERHOLD 06-04 03:10 → 2ND 06-04 15:24
PROVIDERS: ADMIT Internal Medicine; ATTEND Internal Medicine Sleep Medicine
DX: K52.9 Noninfective gastroenteritis and colitis, unspecified (principal); N39.0 Urinary tract infection, site not specified; E86.0 Dehydration; E11.65 Type 2 diabetes mellitus with hyperglycemia; E11.40 Type 2 diabetes mellitus with diabetic neuropathy, unspecified; D72.829 Elevated white blood cell count, unspecified; F17.290 Nicotine dependence, other tobacco product, uncomplicated
CPT/HCPCS: 96365; 96367; 96361; 87088; 87045; 85025 ×2; 81001 ×2; 87086; 80048; 36415 ×2; 83735; 87177; 84100; 82947 ×8; 87046; 83605 ×2; 87209; 87324; 83036; 83690; 80053 ×2; 74177; 96375; 99285; 96366; Q9967; J2543 ×2; J1650 ×2; J2405 ×2; J0744; J1815 ×6; J7030 ×6; G0378